=== PATIENT | female | born 1965 | race Caucasian/White ===

== ENCOUNTER → 2016-08-22 | Outpatient (CLI) | payer SELFPAY ==
[~2016-08-22] MED LIST: EFFEXOR75 MG PO; FLEXERIL10 MG PO; HAIR, SKIN &66.7 MCG PO; HYDRODIURIL25 MG PO; IRON SLOW RELEASE PO; K-TAB 10MEQ10 MEQ PO; MOTRIN800 MG PO; NORCO 5-325 TA1 EACH PO; PRILOSEC20 MG PO; TENORMIN50 MG PO
== END | disposition disaster alternative care site (69) ==
LOC: GRAD 16:00
DX: M50.20 Other cervical disc displacement, unspecified cervical region (principal); M47.892 Other spondylosis, cervical region; M48.02 Spinal stenosis, cervical region

== ENCOUNTER 2016-08-28 07:01 | Day surgery (SDC) | payer SELFPAY ==
[~2016-08-28] VITALS: Ht 154.9 cm; Wt 94.9 kg
--- NOTE | ~2016-08-28 | OR ---
PATIENT'S NAME: TAMMY CAROLINA [facility] AGE: 51 Y [address] ROOM: [address] [address] LOCATION: [facility] ADMIT DATE: 08/28/2016 OR/Procedure Report DISCHARGE DATE: FAMILY PHYSICIAN: Castillo Appiah MD ATTENDING PHYSICIAN: Bobbi Alvarenga SURGEON: Bobbi Alvarenga MD CIGAR MAKER: DATE OF PROCEDURE: 08/28/2016 PREOPERATIVE DIAGNOSIS: Left C5-C6 and C6-C7 disk herniation with accompanying spinal cord compression from stenosis. POSTOPERATIVE DIAGNOSIS: Left C5-C6 and C6-C7 disk herniation with accompanying spinal cord compression from stenosis. OPERATION PROPOSED AND PERFORMED: 1. Anterior cervical microdiskectomy, C5-C6. 2. Anterior cervical microdiskectomy, C6-C7. 3. Anterior cervical fusion, C5-C6. 4. Anterior cervical fusion, C6-C7. 5. Fusion using allograft. 6. Plating using the Inion absorbable plate. 7. Fluoroscopy. 8. Microscope. 9. Decompression of the spinal cord by excision of compressing osteophytes at C5-C6 and C6-C7. DESCRIPTION OF PROCEDURE: Under general anesthesia, the patient was positioned supine. The neck was prepped and draped in the usual manner with some extension of the cervical spine. A curvilinear incision was then carried out extending from the anterior border of the sternomastoid muscle all the way to the midline. The platysma was incised along this line. There was quite a copious amount of subcutaneous fat, which was also incised along the line of the incision. Next, we continued our dissection in the plane between the sternomastoid muscle and the strap muscles. Working medial to the carotid sheath, the strap muscles, esophagus, and trachea were then retracted away from the midline. This got us to the prevertebral fascia, which was cauterized and incised; got us to the vertebral bodies and disk spaces. The disk spaces at C5-C6 and C6-C7 were covered mostly by osteophytes, so it was difficult to really get the spinal needles in, but we were able to tap the main and brought the C-arm in. With the aid of the C-arm, we confirmed that these needles were at the C5-C6 and C6-C7 disk spaces. Next, the disk spaces were marked by using 1 mm Kerrison to remove the osteophytes and therefore marked the disk spaces that width. Next, the longus colli muscles were dissected away from their attachments to the vertebral bodies at C5, C6, and PATIENT'S NAME: TAMMY CAROLINA [facility] AGE: 51 Y [address] ROOM: [address] [address] LOCATION: [facility] ADMIT DATE: 08/28/2016 OR/Procedure Report DISCHARGE DATE: FAMILY PHYSICIAN: Castillo Appiah MD ATTENDING PHYSICIAN: Bobbi Alvarenga C7. The black ash worker self-retaining retractors were then used for retraction, making sure that the transverse blades were under the longus colli muscles. We initially attempted to remove quite a bit of disk material, however, there was really little or no disk space present, so we had to resort to distraction. Distraction pins were then screwed to the C5, C6, and C7 vertebral bodies starting at the C6-C7 level where we distracted the disk space and brought in the microscope. We were able to remove the disk, all the remnants of the disk, and then as we went posteriorly, the disk space got narrower and narrower and this was primarily due to the posterior osteophytes in the posterior-inferior and posterior-superior portions of the C6 and C7 vertebral bodies respectively. Using the 1 mm Kerrison, we were able to remove these osteophytes and created some room, so that we could use the 2 mm Kerrison to further remove the osteophytes and decompress the spinal cord. After we had done that, there were osteophytes that were also in the region of the neural foramina, which we removed on both sides. We had gone through the posterior longitudinal ligament. There was no free fragment of disk material seen here. The wound was then thoroughly irrigated with bacitracin irrigation. What we thought was the disk was the osteophytes that was encroaching on the neural foramina at this level. A piece of Gelfoam soaked in thrombin was then within the now empty disk space to give us some hemostasis. The distraction was released. We then paid attention to the C5- C6 disk space. A similar procedure was carried out. The findings were similar in the sense that there were posterior osteophytes in the posterior- inferior and posterior-superior parts of the C5 and C6 vertebral bodies respectively, but in addition there was a small fragment of disk material that had extruded and was on the left side. This was fished out using the nerve hook and after this was done, we had decompressed the spinal cord in addition to decompressing the nerve root. We then got a piece of Gelfoam soaked in thrombin and waited for 5 minutes for hemostasis. After that was done, we then got the rasp. We used a size 5 rasp, which was a 5 mm height graft and tapped that in, and this was the appropriate size allograft that we needed. We then got the allograft, which we then tapped into the empty disk space and made sure it was countersunk. After that was done, the distraction was released. We then distracted the C6-C7 disk space, removed the Gel-Foam, and then tapped the allograft into space. The same thing was done and it was a size 5, which was a 5 mm height allograft which we tapped in. I should point out that the Gelfoam was removed from the C5-C6 empty disk space prior to putting the bone allograft in. Next, the distractor rods were then unscrewed, removed from the vertebral bodies. The holes created were filled with bone wax. Next, the soft tissue as well as anterior osteophytes were then removed from the anterior-inferior as well as the anterior-superior parts of the C5, C6, and C7 vertebral bodies respectively. Next, we used the template for the Inion plate to get the appropriate length inion plate that we needed. Once we had gotten that, we then put the plate in warm sterile saline. When it was malleable, we then gave it a little bit more lordosis, then cut, and having PATIENT'S NAME: TAMMY CAROLINA [facility] AGE: 51 Y [address] ROOM: [address] [address] LOCATION: [facility] ADMIT DATE: 08/28/2016 OR/Procedure Report DISCHARGE DATE: FAMILY PHYSICIAN: Castillo Appiah MD ATTENDING PHYSICIAN: Bobbi Alvarenga done that, we brought the plate to the anterior portion of C5, C6, and C7 vertebral bodies, traversing the disk spaces. Pins were then used to hold the plate in position. Next, using the drill guide, we placed this over the hole in the plate, drilled, tapped, and put the screws in. This procedure was then continued in the 5 remaining holes. When it got to the plate holding pins, plate holding pins were removed and similar procedures were carried out. The wound was then thoroughly irrigated with bacitracin irrigation and closed in layers, first the platysma and then the skin. Prior to that, we explored the wound to make sure there was no bleeding and there was not any bleeding that we could see. The wound was then closed in layers, first the platysma and then the skin which was closed with kameron, the platysma with 3-0 Vicryl. Next, the C-arm was then brought back in and we got an AP and lateral fluoro. Unfortunately, we could not see the C7 vertebral body. We just saw the inferior portion of the C6 with just a little bit of the graft at the C6-C7 level. The screws at the C5 and C6 vertebral bodies were in good position. The patient tolerated the procedure well and was taken to the recovery room. MD ALEXIS GARSIA/samantha /[id number] d: 08/28/16 1845 t: 09/06/16 1454, OPERATIVE SUMMARY
[~2016-08-28 07:01] MED LIST changes: -K-TAB 10MEQ10 MEQ PO; -PRILOSEC20 MG PO
[2016-08-28] MEDS ORDERED: K-TAB 10MEQ10 MEQ PO (07:37)
[2016-08-28] MEDS ORDERED: PRILOSEC20 MG PO (07:39)
--- NOTE | 2016-08-28 16:41 | NUR ---
Significant Event: PT ARRIVED ON FLOOR AT 1315. POST OP VITALS CONT. 3RD HOURLY AT 1900. 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 USES IS. NO VOID YET. WILL UPDATE YOU. IV FLUIDS INFUSING. DRESSING TO NECK INTACT. NO O2 AT THIS TIME. CMS INTACT. FAMILY IN THE ROOM Follow up:
--- NOTE | 2016-08-29 04:36 | NUR ---
Pt AOx3. Pt up with stand by assist to bathroom. No difficulties voiding. Dressing C/D/I. Morphine pulp press tender will be changed to a lock out of 1 mg q hour demand dose only at 0500. Pt had 4 demands, 4 deliveries for a total of 4 mg. Pt's pain has been 4-5/10, which is tolerable per pt. Pt remains on room air. End tidal on. Pt denies numbness or tingling.
--- NOTE | 2016-08-29 09:35 | NUR ---
Introduced self/role to patient. She lives in [place] with her Ritchie. They do have insurance but it is thru a [employer] company. She has the financial assistance forms too. Her will be around to assist her and she had lots of grand kids lined up to help her. She plans to go home today. Added my name to her marker board.
--- NOTE | 2016-08-29 14:38 | NUR ---
Dismissal Note: Ambulates with SBA. Dressing changed this afternoon, sutures intact. CSM WNL. Voids without difficulty, BM prior to dismissal. [place] 1 tab for pain control at 1409. Smooth education given with dismissal instructions, patient and state understanding. Dismissed to home per private vehicle with .
== END 2016-08-29 14:25 | disposition disaster alternative care site (69) ==
LOC: G3N 07:01 → GSDC 07:01 → G3N 13:15 → GSDC 15:00
PROC: 0RG20A0 Fusion of 2 or more Cervical Vertebral Joints with Interbody Fusion Device, Anterior Approach, Anterior Column, Open Approach (ICD-10-PCS; principal; 2016-08-28)
PROC: 0RG40K0 Fusion of Cervicothoracic Vertebral Joint with Nonautologous Tissue Substitute, Anterior Approach, Anterior Column, Open Approach (ICD-10-PCS; 2016-08-28)
PROC: 0PH304Z Insertion of Internal Fixation Device into Cervical Vertebra, Open Approach (ICD-10-PCS; 2016-08-28)
DX: M50.222 Other cervical disc displacement at C5-C6 level (principal); M50.223 Other cervical disc displacement at C6-C7 level; G95.29 Other cord compression; M48.02 Spinal stenosis, cervical region; K21.9 Gastro-esophageal reflux disease without esophagitis; I10 Essential (primary) hypertension; Z87.891 Personal history of nicotine dependence; Z90.49 Acquired absence of other specified parts of digestive tract; Z98.890 Other specified postprocedural states; F41.8 Other specified anxiety disorders; Z88.2 Allergy status to sulfonamides; Z88.1 Allergy status to other antibiotic agents; Z91.040 Latex allergy status; Z91.048 Other nonmedicinal substance allergy status; Z79.899 Other long term (current) drug therapy
CPT/HCPCS: C1713; J0690; J1100; J2001; J2250; J2270; J2405; J3010; J3250; J7030; J7120